=== PATIENT | female | born 1965 | race Caucasian/White ===

== ENCOUNTER 2019-03-08 10:54 | Inpatient (IN) | payer OTHER, SELFPAY ==
[2019-02-27 12:58] VITALS: BMI 24.2
[2019-03-08] VITALS (19 sets, daily range): BP systolic 96–163; BP diastolic 58–82; PULSE 67–88; RESP 10–37; TEMP 36.5–37.5; O2SAT 95–100; BMI 24.2
--- NOTE | 2019-03-08 | DI.RAD.S_ITS ---
PROCEDURE: XR LUMBAR SPINE 2-3V INDICATIONS: L4-5 TLIF TECHNIQUE: 2 operative views of the lumbar spine were acquired. COMPARISON: None. FINDINGS: AP and lateral operative images demonstrate posterior lateral right and pedicle screw fixation and interbody fusion material placement at L4-L5. There is no radiographic evidence of complications. IMPRESSION: Operative imaging utilized for lumbar surgery. Dictated by: Jaylon Red M.D. on 03/08/2019 at 15:58 Approved by: Jaylon Red M.D. on 03/08/2019 at 15:59
[2019-03-08] MEDS: LACTATED RINGERS 1,000 ML 42 ML IV ×2 (11:57→15:53)
--- NOTE | 2019-03-08 12:56 | PM.PREOP ---
Pre-operative Note Interval Note History & Physical reviewed/Exam performed by Physician: Yes Changes to H&P: No
[2019-03-08] MEDS: CEFAZOLIN 2 GM/100 ML FROZ.PIGGY IV (13:47)
--- NOTE | 2019-03-08 14:38 | SUR.OPER ---
Prone on spine table, head in foam head support, padded chest and pelvic supports, gel pad at knees, lower legs supported by pillows; nipples, genitalia and toes free of pressure, arms secured on foam padded arm boards at <90 degrees abduction. Tape over blanket at thigh secured to table.
[2019-03-08] MEDS: BUPIVACAINE LIPOSOME 266 MG/20 ML VIAL INJ (14:48)
[2019-03-08] MEDS: BUPIVACAINE 0.25% W/ EPI (PF) 10 ML VIAL 20 ML INJ (14:49)
[2019-03-08] MEDS: ACETAMINOPHEN IV 1,000 MG/100 ML VIAL 400 MG IV (15:12)
--- NOTE | 2019-03-08 16:19 | P.OP_ITS ---
Operative Date/Time/Diagnoses Date of procedure: 03/08/19 Time of procedure: 13:19 Pre-op diagnosis: 1. L4-5 spinal stenosis with neurogenic claudication 2. L4-5 spondylosis with radiculopathy 3. Lumbar scoliosis Post-op diagnosis: same Procedure & Clinicians Procedure: 1. L4-5 Postero-lateral and posterior interbody fusion 2. L4-5 interbody cage placement. 3. L4-5 decompressive laminectomy with bilateral facetecomies 4. L4-5 Posterior non-segmental instrumentation 5. [place] of bone marrow from iliac crest 6. Utilization of microsurgical technique and operating microscope Same procedure as scheduled: Yes Indications: Patient has been having chronic back pain and worsening lumbar radiculopathy. Patient failed multiple conservative management with worsening pain weakness and numbness in her lower extremity. Patient has been having difficulty performing activity of daily living. After discussing risks benefits of treatment options, patient elected proceed with surgery. Surgeon: Rolf Ladd Finisher Wallboard And Plasterboard: Rachael Good'Brien Click Yes if Unassisted: No Anesthesia Type: General Operative Notes Closure Type: primary Specimen(s): none sent Prosthetic devices, grafts, tissues, transplants, or devices: Globus revolve, RIse cage Estimated Blood Loss (mL): 50 Blood products transfused: none Procedure in detail: Patient was seen in the preoperative area. Risks and benefits of the surgery was discussed with the patient. Informed consent was obtained from the patient and placed in the chart. Surgical site was marked. Patient was taken to the operative room. General anesthesia was administered. Prophylactic antibiotic was given to the patient less than 30 min before the incision was made. Patient was placed into a prone position on the [place] table. Patient's back was then prepped and draped in the sterile fashion. Time- out was performed at this time. Using AP and lateral C-arm imaging the interval between L4-5 was identified and marked on patient's back. A 2 inch incision 2 in from midline was made on the right side first. The fascia was incised in line with skin incision. Globus MARS retractors was placed inside the incision and docked onto the L4 lamina. Using microsurgical technique and operating microscope, a L4 laminectomy and L4- 5 facetectomy was performed using a [place] rongeur. Patient was found have severe central and neuroforaminal stenosis at L4-5 which was fully decompressed after laminectomy facetectomy was completed. The L4-5 level was found to be grossly unstable after decompression was completed and requiring a fusion procedure at the same time. The disc space at L4-5 was identified. And a total diskectomy was performed at L4-5 level. The endplates were decorticated using a rasp and shaver. The total diskectomy and decortication was performed at L4-5 level in order to to accomplish a L4-5 fusion. The local bone from the laminectomy and facetectomy was saved for local bone grafting. After the total diskectomy and decortication was completed, Bio4 bone graft material was combined with local bone that was harvested earlier. At this time, a separate skin is incision was made over the iliac crest. A Jamshidi needle was inserted into the iliac crest through a separate skin incision. 5 cc of bone marrow aspiration was obtained through the separate skin incision using a Jamshidi needle from the iliac crest. The bone marrow aspiration was combined with local bone and the Bio4 bone grafting material. The bone grafting material was placed into the L4-5 interbody space along with a expandable cage. The cage was expanded to its maximum height using the torque limiting screwdriver. At this time a mirror image incision was made on the left side. The fascia was incised in line with the skin incision. Globus MARS retractor was inserted and docked onto the L4-5 posterolateral gutter. Using the power drill, posterior- lateral decortication was performed at L4-5 level until bleeding cortical bone was identified. The remaining bone grafting material was placed into the L4-5 posterior lateral gutter he order to accomplish posterolateral fusion at the L4- 5 level. Using the double C-arm technique, pedicle screws were placed into the L4-5 pedicles bilaterally. This was done by placing the Jamshidi needle into the pedicles, then placing the guidewires over the Jamshidi needle, and finally placing the cannulated screws over the guidewires bilaterally. After the pedicle screws were placed, 2 titanium rods was locked into the heads of the pedicle screws using locking caps and torque limiting screwdriver. After all the hardware was placed, and confirmed with AP and lateral C-arm imaging, the wound was then irrigated with sterile normal saline and packed with Ray-Giancarlo gauze for 3 min to accomplish hemostasis. After the gauze was removed the deep fascia was closed with #1 Vicryl suture. The subcutaneous layer was closed with 2-0 Vicryl. The skin was closed with skin stormy. Patient tolerated the procedure well. There were no complications. Complications: none Post-operative Condition: stable Disposition: PACU Plan for aftercare: Admit to inpatient hospital
--- NOTE | 2019-03-08 16:23 | SUR.PHASEI ---
hand-off to Carolyn Darnell RN
[2019-03-08] MEDS: hydrOXYzine 50 MG/ML INJ 25 MG IM (16:40)
[2019-03-08] MEDS: LORazepam 2 MG/ML INJ 0.25 MG IV (16:41)
[2019-03-08] MEDS: HYDROMORPHONE 2 MG INJ IV (17:00)
--- NOTE | 2019-03-08 17:17 | SUR.PHASEI ---
Gave pain medication for c/o 11/12 pain. Patient states she had numbness/tingling in feet prior to surgery and continues to have numbness/tingling after surgery.
--- NOTE | 2019-03-08 18:22 | PC.NURSE ---
Tiffanie shift note: Received patient S/P TLIF scheduled with Dr. Ladd, from PACU. Sleepy but arouses easily, on RA, O2 sats 98%. SCDs in place, [place] to lower back, CDI, VSS and afebrile. Daughter Cristel at bedside providing supportive care. Updated patient and daughter regarding plan of care. Oriented to room and environment, call light within reach. High Fall risk precautions in place.
[2019-03-08] MEDS: SODIUM CHLORIDE 0.9% 1,000 ML 100 ML IV (19:12)
[2019-03-08] MEDS: DEXTROSE 50 % IN WATER 25 GM/50 ML SYRINGE IV (20:30)
[2019-03-08] MEDS: CEFAZOLIN 1 GM/50 ML FROZ.PIGGY IV (21:54)
[2019-03-08] MEDS: DEXTROSE 5%-0.9% NS 1,000 ML 100 ML IV (21:54)
--- NOTE | 2019-03-08 22:32 | PC.NURSE ---
Tiffanie shift event note: BG check at 1026 59 mg/dl, patient awake and alert, asymptomatic. 1/2 amp dextrose admin per order. BG increased to 136 mg/dl. orange juice and sandwich taken PO at this time. BG to at 110 at reasses, then decrease to 82. Dr. Dale made aware regarding hypoglycemia event, IVF changed from 0.9 NS to D5 0.9 NS at same rate. Patient awake, pleasant, and cooperative. Daughter at bedside, mentioned patient had occasional hypoglycemic events at home. Will continue to monitor BG closely and s/sx of hypoglycemia. Up out of bed to [facility] [place] [facility], voided 500 ml.
[2019-03-08] MEDS: OXYCODONE/ACETAMINOPHEN 5/325 TABLET 2 TAB PO (23:59)
[2019-03-09 03:38] VITALS: BP 137/70; PULSE 93; RESP 14; TEMP 37.4; O2SAT 97
[2019-03-09] MEDS: CEFAZOLIN 1 GM/50 ML FROZ.PIGGY IV (05:56)
[2019-03-09] MEDS: OXYCODONE/ACETAMINOPHEN 5/325 TABLET 2 TAB PO ×4 (05:56→21:54)
[2019-03-09 08:00] VITALS: BP 98/57; PULSE 79; RESP 16; TEMP 37.1; O2SAT 95
[2019-03-09] MEDS: METFORMIN HCL 500 MG TABLET 1000 MG PO (08:36)
[2019-03-09] MEDS: INSULIN ASPART 100 UNIT/ML INSULN PEN SUBCUT ×3 (08:36→21:52)
[2019-03-09] MEDS: DOCUSATE 100 MG CAPSULE PO ×2 (08:36→21:53)
[2019-03-09] MEDS: INSULIN GLARGINE 100 UNIT/ML 10ML VIAL 30 UNIT SUBCUT (08:37)
--- NOTE | 2019-03-09 08:48 | PC.NURSE ---
Patient resting in bed comfortably this morning, states that pain medications from this morning have helped, assisted to sit up for breakfast. Dressing intact to back without further drainage noted. Patient tolerating po's, IV fluids saline locked this morning per MD order. Patient refused premeal aspart insulin as ordered for 6 units stating she does not take that and only uses a sliding scale with her meals. Call light within reach reach.
--- NOTE | 2019-03-09 09:30 | PT.IIE ---
this is to certify that I have reviewed this documentation and is involved with this pt's care Current Diagnoses Foot drop, right foot (03/08/19) Spinal stenosis, lumbar region without neurogenic claudication (03/08/19) Intervertebral disc disorders with radiculopathy, lumbar region (03/08/19) Surgery Performed Operation Date: 03/08/19 13:15 Actual Procedures p L4-5 TLIF - Rolf Ladd MD Surgical History (Last Updated 02/27/19 @ 13:17 by Chani Galan RN) History of arthroscopy of right shoulder (Acute) History of bilateral carpal tunnel release (Acute) History of partial hysterectomy (Acute) Hx of arthroscopy of left knee (Acute) Hx of tonsillectomy (Acute) Medical History (Last Updated 02/27/19 @ 13:17 by Chani Galan RN) Diabetes (Acute) History of trigger finger (Acute) HLD (hyperlipidemia) (Acute) HTN (hypertension) (Acute) RLS (restless legs syndrome) (Acute) Sciatica (Acute) Seasonal allergies (Acute) Physical Therapy Inpatient Evaluation/Re-Eval M1 PT/OT-IP Prior Functional Status Start: 03/09/19 11:36 Freq: NEEDED Status: Active Protocol: Document 03/09/19 09:30 MT (Rec: 03/09/19 12:11 MT [id number]) Medical Review Prior Functional Status Medical History Reviewed Yes Diet/Fluid Consistency Regular Communication Pt able to make needs known Mobility and Gait Pt reports being independent with gait and no prior use of AD Activities of Daily Living and IADL's Pt reports being independent marcos all ADL's, but she had difficulty putting pants on and required sitting down to accomplish tasks Prior Functional Level (Other details) Pt reports that and daughter helped her with certain activtiies around the house that involved lifting Social History Household Members spouse,family,children Living Arrangements House Number of Floors (Floors) One Floor Number of Stairs To Enter/Railing? There is 1 step to get into the bathroom of her house. is plannign on installing grab bar on R side to get in. There is a one step threshold to get into house with no handrail. Home Environment Standard Height Toilet,Walk in Shower Home Equipment Hand Held Shower,Grab Bars Near Toilet Employment Status Unknown Additional Social History Comment Pt lives at home with her and daughter. M2 PT-IP Current Condition Start: 03/09/19 11:36 Freq: NEEDED Status: Active Protocol: Document 03/09/19 09:30 MT (Rec: 03/09/19 12:11 MT [id number]) Physical Therapy Current Condition Current Condition Evaluation Date 03/09/19 Treatment Diagnosis decreased mobility, difficulty with walking s/p L4-5 TLIF Onset Date 03/08/19 Precautions Lumbar Precautions Log Roll,No Twisting,Limit Bending,Lifting Restriction of 10 lbs,Gait Belt above Incisional Area Weight Bearing Status Weight Bearing Status Full Weight Bearing M3 PT-IP Subjective Start: 03/09/19 11:36 Freq: NEEDED Status: Active Protocol: Document 03/09/19 09:30 MT (Rec: 03/09/19 12:11 MT [id number]) Subjective Physical Therapy Visit Type Type Initial Evaluation Visit Start Time 09:30 Visit Stop Time 10:02 Total Visit Minutes 32 Number of RUBY ON RAILS ENGINEER Visits 0 Physical Therapy Visit Comments Patient Comments Pt was agreeable to participate in Pt evaluation Therapy Pain Assessment Pain When Pain Assessed At Rest Pain Present Pain Present Pain Reported Location back Intensity 6 Scale Used Numeric (1 - 10) Description With Movement Pain Behaviors Facial Grimacing Pain Management Techniques Timing of Activity with Medications M4 PT-IP Mobility and Gait Start: 03/09/19 11:36 Freq: NEEDED Status: Active Protocol: Document 03/09/19 09:30 MT (Rec: 03/09/19 12:11 MT [id number]) PT-Bed Mobility Assessment Rolling Type of Rolling Log Rolling Level of Assist Contact Guard Assistance Supine to Sit Supine to Sit Contact Guard Assistance Sit to Supine Sit to Supine Contact Guard Assistance Scooting Scooting to Edge of Bed Standby Assistance PT-Transfer Assessment Sit to and From Stand Sit to and from Stand Contact Guard Assistance,1 Person Assistance,Use of Upper Extremities Equipment Transfer Assistive Device Gait Belt,Front Wheeled Walker Orthotic/Prosthetic Devices or Brace: No Transfers Transfer Destination Bed Transfer Technique sit to stand Transfer Ability Level of Assist Contact Guard Assistance Comments Mobility Comments Pt was found in bed prior to start of eval. Pt's BP was assessed prior to initiating movmeent and found to be 103/ 57. Pt was educated on log roll techinque and performed log roll and supine to sit with CGA. Pt was able to scoot to EOB with SBA. Once in sitting pt's BP was 111/63. Pt performed sit to stand with 2WW and CGA. Once in standing, pt's BP was 72/38 and she reported dizzyness. Pt was asked to sit back onto bed. BP was reassessed and found to be 68/36 and she reported onset of ringing in her ears. Pt performed sit to supine with log rolling technique CGA and was positioned in supine with feet slightly elevated. After 2 minutes in being positioned in trendelenburg, pt's BP was 134/58. Nursing was notified of the BP changes with positioning. Evaluation was concluded with pt in bed with her table and call light in [facility] and her bed alarm on. Gait Assessment Comments Gait Comments not assessed at this time Stair Climbing Assessment Comments Stair Climbing Comments not assessed at this time PT-Balance Assessment Sitting Balance and Reactions Static Sitting Balance Ability Good Dynamic Sitting Balance Ability Good Standing Balance and Reactions Static Standing Balance Ability Fair Dynamic Standing Balance Ability Fair Device Used 2WW M5 PT-IP Objective Assessments Start: 03/09/19 11:36 Freq: NEEDED Status: Active Protocol: Document 03/09/19 09:30 MT (Rec: 03/09/19 12:11 MT [id number]) Orientation Orientation/Cognition Level of Alertness Alert Orientation Name,Date,Place,Situation Language Function Ability No Deficits Noted Safety Awareness Understands Safety Issues Memory Description No Deficits Noted Gross Range of Motion Lower Extremity ROM Assessment Within Functional Limits Impairments pain present Strength Lower Extremity Strength Assessment Bilaterally Impaired Comments Strength Comments R: 3+/5; L: 4/5 Sensation Assessment Sensation Gross Sensation WNL M6 PT-IP Treatment Start: 03/09/19 11:36 Freq: NEEDED Status: Active Protocol: Document 03/09/19 09:30 MT (Rec: 03/09/19 12:11 MT [id number]) Physical Therapy Treatment Education Education Provided Precautions,Post-Op Packet, Safety M7 PT-IP Assessment and Plan Start: 03/09/19 11:36 Freq: NEEDED Status: Active Protocol: Document 03/09/19 09:30 MT (Rec: 03/09/19 12:11 MT [id number]) PT Summary Assessment and Plan Potential Rehabilitation Potential Good Status of Condition at Evaluation Unstable Summary Impairments Pain,ROM,Strength,Balance,Bed Mobility,Transfers,Gait, Activity Tolerance Assessment Summary Pt performed bed mobility and sit to stand transfer with CGA . Once in standing, pt reported symptoms of dizzyness and had an orthostatic drop in BP. Did not continue any further standing or ambulation . When appropriate for pt and when her vitals are stabilized in standing, gait and stair ability will be assessed. Pending pt's ability to ambulate safely, navigate steps, and succesful caregiver training with family , pt will be safe to d/c home with assistance from daughter and . Goals Bed Mobility Goal Independent Transfer Goal Independent,Front Wheeled Walker Gait Goal Standby Assistance,Front Wheel Walker Gait Distance 150 ft Other Goals able to asced/descend one step without use of handrail with 2WW and SBA Days to Meet Goals 5 Frequency of Treatment Frequency Of Treatment Twice a Day Treatment Plan Physical Therapy Treatment Plan Bed Mobility Training,Transfer Training,Gait Training, Therapeutic Exercise,Balance Retraining,Post Op Education, Discharge Planning,Hot or Cold Pack,Manual Therapy Other Recommendations and Next Treatment caregiver training, gait Focus training, and stair training when appropriate for pt, follow up with pt about their options for 2WW Recommendations To Nursing Amount of Assist Needed 1 Person Assist Discharge Recommendations PT Discharge Recommendations Home with Assistance,Home Health Equipment Needed for Home Before 2WW Discharge
--- NOTE | 2019-03-09 10:45 | PC.NURSE ---
Was notified by P.T. that patient had hypotensive episode when working with them. Blood pressure noted as low as 68/36 with heart rate at 66. Upon my arrival patient laying flat in bed, comfortable, but slightly pale in the face. Blood pressure noted back to 134/58 with heart rate of 73. Patient states she felt a little dizzy, and coming near to fainting, now resolved at rest. Patient going to rest, call light within reach, instructed to call for assistance, bed alarm active for safety. Message left for Hanny Medina PA, will continue to follow.
--- NOTE | 2019-03-09 11:58 | OT.IP.EVAL ---
Current Diagnoses Foot drop, right foot (03/08/19) Spinal stenosis, lumbar region without neurogenic claudication (03/08/19) Intervertebral disc disorders with radiculopathy, lumbar region (03/08/19) Surgery Performed Operation Date: 03/08/19 13:15 Actual Procedures p L4-5 TLIF - Rolf Ladd MD Past Medical History (Last Updated 02/27/19 @ 13:17 by Chani Galan, RN) Diabetes (Acute) History of trigger finger (Acute) HLD (hyperlipidemia) (Acute) HTN (hypertension) (Acute) RLS (restless legs syndrome) (Acute) Sciatica (Acute) Seasonal allergies (Acute) Surgical History (Last Updated 02/27/19 @ 13:17 by Chani Galan RN) History of arthroscopy of right shoulder (Acute) History of bilateral carpal tunnel release (Acute) History of partial hysterectomy (Acute) Hx of arthroscopy of left knee (Acute) Hx of tonsillectomy (Acute) Occupational Therapy Inpatient Evaluation/Re-Eval M1 PT/OT-IP Prior Functional Status Start: 03/09/19 11:36 Freq: NEEDED Status: Active Protocol: Document 03/09/19 11:58 PJM (Rec: 03/09/19 13:48 PJM [id number]) Medical Review Prior Functional Status Medical History Reviewed Yes Diet/Fluid Consistency Regular Communication WNL Mobility and Gait Pt reports being independent with ambulation without a device. Activities of Daily Living and IADL's Pt reports being independent marcos all ADL's, but she had difficulty putting pants on and sits down to do this. Her daughter has been assisting with trimming toenails due to pt's difficulty reaching feet. Pt does cooking, shopping, driving. Prior Functional Level (Other details) Pt reports that and daughter helped her with activities around the house that involved lifting. Social History Household Members spouse,family,children Living Arrangements House Number of Floors (Floors) One Floor Number of Stairs To Enter/Railing? There is 1 step to get into the bathroom of her house. is planning to install grab bar on R side to get in. There is a one step threshold to get into house with no handrail. Home Environment Standard Height Toilet,Walk in Shower Home Equipment Hand Held Shower,Grab Bars Near Toilet Employment Status Senior Regulatory Affairs Specialist Employed Additional Social History Comment Pt lives at home with her and daughter. 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 M2 OT-IP Current Condition Start: 03/09/19 08:38 Freq: Status: Active Protocol: Document 03/09/19 11:58 PJM (Rec: 03/09/19 13:48 PJ [id number]) Occupational Therapy Current Condition Current Condition Evaluation Date 03/09/19 Treatment Diagnosis decreased self care, mobility s/p L4-5 TLIF Diagnosis Onset Date 03/08/19 Post Operative Precautions Lumbar Precautions Log Roll,No Twisting,Limit Bending,Lifting Restriction of 10 lbs,Gait Belt above Incisional Area Other Precautions hypotensive with P.T. in standing 03/09 M3 OT- IP Subjective and Pain Start: 03/09/19 08:38 Freq: Status: Active Protocol: Document 03/09/19 11:58 PJM (Rec: 03/09/19 13:48 PJ [email or web address]) OT- Subjective Occupational Therapy Visit Type Type Initial Evaluation Visit Start Time 11:40 Visit Stop Time 11:58 Notes Pt seen at bedside due to episode of severe hypotension in standing with P.T. this AM. Pt's BP 120/63 in supine, 131/ 68 long sitting in bed for lunch. 124/80 after 5+ min sitting up. Occupational Therapy Visit Comments Patient/Caregiver Goals to have less back pain, be able to resume household activity without pain, return to work OT Pain Assessment Pain When Pain Assessed At Rest Location back Intensity 5 Description Aching,Acute M4 OT- IP ADL's Start: 03/09/19 08:38 Freq: Status: Active Protocol: Document 03/09/19 11:58 PJM (Rec: 03/09/19 13:48 [facility] [id number]) OT [id number] General Evaluation Self-Feeding Ability Independent OT ADL-Grooming General Evaluation Grooming Ability Independent Comments OT Grooming Comments after set up in bed OT ADL-Oral Care General Eval Oral Care Ability Independent Comments Oral Care Comments after set up in bed OT ADL-Dressing Comments OT Dressing Comments provided brief education re: lower body dressing and equipt options OT ADL-Toileting Comments OT Toileting Comments to be assessed as activity tolerance improves OT ADL-Bathing Comments OT Bathing Comments to be assessed as activity tolerance improves M5 OT- IP IADL's Start: 03/09/19 08:38 Freq: Status: Active Protocol: Document 03/09/19 11:58 PJM (Rec: 03/09/19 13:48 PJ [email or web address]) OT-Instrumental Activities of Daily Living Deficits IADL Deficits Identified Deficits Home Safety Awareness Awareness of Need for Assistance at Home Good Awareness Ability to Problem Solve Emergency Able to Problem Solve Situations Medication Management Medication Management No Deficits Identified Money Management Money Management No Deficits Identified Meal Preparation Meal Preparation Caregiver Provides Assist Meal Preparation Comments family to assist until pt able Catalogue Maker Catalogue Maker Caregiver Provides Assist Catalogue Maker Comments family to assist until pt able Driving Driving Concerns Identified Regarding Safety Driving Comments family to assist until pt able M6 OT- IP Functional Cognition Start: 03/09/19 08:38 Freq: Status: Active Protocol: Document 03/09/19 11:58 PJM (Rec: 03/09/19 13:48 PJ [email or web address]) Cognitive Factors Limiting Selfcare Function Cognitive Ability Level of Alertness Alert Patient Orientation Name,Age,Birthday,Month,Date, Year,Day of Week,Place, Situation Attention Span Ability Capable of Focused Attention, Capable of Sustained Attention Ability to Follow Commands Able to Follow One Step Commands Memory Description No Deficits Noted Cognitive Comments Cognitive Assessment Comments pt verbalizes 3/3 lumbar spine precautions OT- Vision and Hearing OT- Hearing Assessment OT- Hearing Assessment WFL OT- Vision Assessment Visual Acuity WFL,Glasses All The Time M7 OT- IP Mobility and Balance Start: 03/09/19 08:38 Freq: Status: Active Protocol: Document 03/09/19 11:58 PJM (Rec: 03/09/19 13:48 PJ [email or web address]) OT-Transfer Assessment Comments Mobility Comments see P.T. notes OT- Gait Assessment Comments Gait Ability Comments did not occur due to hypotension OT- Balance Assessment Comments Other Balance Tests/Deviations/Treatment see P.T. notes : M8 OT- IP Objective Assessments Start: 03/09/19 08:38 Freq: Status: Active Protocol: Document 03/09/19 11:58 PJM (Rec: 03/09/19 13:48 PJ [email or web address]) OT Gross Range of Motion Upper Extremity Range of Motion Assessment Within Functional Limits OT Strength Upper Extremity Strength Assessment Within Functional Limits OT- Coordination Assessment Comments Coordination Comments BUE WFL OT-Muscle Tone Assessment Muscle Tone WNL Yes OT Sensation Assessment Comments Summary Comments Pt denies deficits in BUE's Edema Edema Absent M9 OT- IP Assessment and Plan Start: 03/09/19 08:38 Freq: Status: Active Protocol: Document 03/09/19 11:58 PJM (Rec: 03/09/19 13:48 PJM [email or web address]) OT Summary Assessment and Plan Potential Rehabilitation Potential Good Analytic Complexity at Evaluation Low Summary OT Impairments Pain,Functional Mobility, Grooming,Dressing,Toileting, Bathing,Toilet Transfers, Shower Transfers Progress Towards Goals Slow Progress due to Medical Issues Assessment Summary Low complexity OT assessment completed at bedside today on this 53 yr old female s/p L4-5 TLIF. Pt had episode of hypotension in standing earlier this AM which limited participation today. Pt presents with performance deficits in activity tolerance , all functional mobility, transfers, standing, grooming, lower body dressing, bathing and toileting. Anticipate pt will continue to improve over next 1-2 days and be able to return home with assist from and daughters. Pt will benefit from 1-2 additional OT visits here to address the goals below. Goals Grooming Goal Independent Dressing Goal Independent,Long Handled Shoe Horn,Goat Driver,Sock Aid Toileting Goal Independent Bathing Goal Standby Assistance Toilet Transfer Goal Independent,Grab Bars Shower Transfer Goal Standby Assistance Patient/Caregiver Education Goal Demonstrate Post-Op Precautions,Demonstrate Energy Conservation and Pacing, Caregiver Independent Assisting Patient OT-Other Goals Grooming to be doen standing at sink with good body mechanics. Days to Meet Goals 2 Frequency of Treatment Frequency Of Treatment Once a Day Treatment Plan OT Treatment Plan ADL Training,Functional Mobility,Patient/Family Education,Discharge Planning Discharge Recommendations OT Discharge Recommendations Home with Assistance Home Equipment Needs home health speech therapist, sock aid, long shoe horn, ? shower seat
[2019-03-09 12:00] VITALS: BP 120/73; PULSE 81; RESP 16; TEMP 36.9; O2SAT 97
[2019-03-09] MEDS: INFLUENZA VACCINE 0.5 ML SYRINGE IM (13:32)
--- NOTE | 2019-03-09 14:49 | CM.DANOTE ---
DCP Assessment: EMR reviewed: Patient is a 53 yr old female who was admitted for L4-L5 TLIF surgery preformed by Dr. GARCIA. Patients PCP is Dr Dowell. CM/RN met with patient at the bedside and explained role. Patient was alert and oriented at time of visit. Patient currently lives in a single level house with her and her children. Patient is I with all ADL's at base line and has Pos op appointment scheduled for 03/21/2019 with . PT eval pending. I: Bill (work related injury) Plan: D/C home with family when medically stable. Patient doesn't have any DME at home and might need help with a FWW if one is needed. Krystina Thorne RN Discharge Planning/Care Management CM Discharge Assessment Start: 03/09/19 14:47 Freq: Status: Active Protocol: Document 03/09/19 14:47 HS (Rec: 03/09/19 14:49 HS [id number]) Discharge Planning Assessment Assigned Mechanic Sound Technician Krystina Thorne RN DPOA/Assigned Designee Name Robert Platt () Contact Information [phone] Advance Directives? No History Provided By Patient Has Patient been admitted in last 30 No days? Prior Living Arrangements House Household Members spouse,family,children Type of transporation used prior to Drives own vehicle admit Independent with ADL's Yes Is patient alert and oriented? Yes Caregiver for Another Yes: patient has several teenage children Comment patient doesn't currenly have any DME at home Patient/Family Preference OP PT Therapy Discharge Plan Home Transportation Arrangement patients will transport patient home Referrals Initiated None needed Whiteboard Updated in Patient Room with Yes name and ext. # of Mechanic Sound Technician Review Status In Process Next Review Type Continued Stay Review Pre-Anesthesia Assessment Start: 02/27/19 12:58 Freq: Status: Complete Protocol: Document 02/27/19 12:58 CAB (Rec: 02/27/19 13:41 CAB [id number]) Pre-Anesthesia Assessment PAC Comment Pt states she cannot afford medications for HTN and HLD Patient Information Reviewed Via Phone Assessment Assessment Completed With Patient Diagnostic Results BMP/CMP,CBC,EKG Primary Care Provider Guy Dowell Seen Specialist in Last 12 Months Yes Specialist Seen Orthopedist Comment PCP visit 02/09/19 scanned to record Primary Language Sinhala Principal Systems Engineer Required No Height 162.56 cm Weight 63.957 kg Body Mass Index (BMI) 24.2 Hearing Ability Normal Visual Assist Glasses Dentition Type Teeth, Natural Present,Teeth, Missing Barriers to Learning None Hx Anesthesia Reactions No Hx Family Anesthesia Reaction No Hx Malignant Hyperthermia No Hx Blood Transfusions No Anesthesia Review Requested No alcohol intake former Smoking Status Former smoker Tobacco type cigarettes how long ago did patient quit smoking Quit 2010 Substance Use Type does not use Pain Present Pain Reported Musculoskeletal Symptoms Back Pain,Difficulty Walking, Joint Stiffness History of Falling (Recent or History of No ) Patient is completely paralyzed or No completely immobile Mental Status Oriented to own ability Is patient on oxygen? No Does patient have SMITH/SOB No Hx Sleep Apnea No Currently Taking a Beta Darek No Can You Climb a Flight of Stairs Without Yes SOB Hx Chest Pain No Hx SOB No Hx Syncope or Dizziness No Anti-Coagulant Therapy No Has a Grinder Machine Setter No Cardiac Testing No Hx Pacemaker/ICD No Pacemaker Rep Required? No Cardiac Clearance Received Not Applicable Diet Type At Home Regular dysphagia No Urinary Catheter Present No Hx Urinary Self Catheterization No Diabetes Yes: Checks blood sugars 4-6 times/day HgbA1C 8.9 Date 01/20/19 Patient No Lactating No Hx Drug Resistant Organism No Presence of External or Internal Medical No Devices Have you traveled outside the [facility] States in the last 30 days? Marital Status Lives With spouse,family,children Prior Living Arrangements House Number of Floors (Floors) One Floor Support System Child/Children,Spouse Does the Patient Have Assistance After Yes Surgery Patient Discharge Plan Description Return Home Comment Pt not advised on length of stay per surgeon Feels Safe in Current Environment Yes Been Physically Hurt or Threatened By a No Person in Current Environment If Yes, Provider Notified Yes Are you currently considering suicide? No Do you have a plan to hurt yourself or No Plan others? Do You Have Any Spiritual Beliefs That No May Affect Your HC Choices? Do You Have Any Cultural Practices That No May Affect Your HC Choices? Comment Roman Catholic Who Can We Speak to About Patient's Care Family, friends Identifying Code for Release of Patient Declines to issue Information Health Care Proxy/Next of Kin Cristel (daughter) Health Care Proxy Emergency Contact Name Cristel (daughter) Emergency Contact Advance Directives? No Power of Automotive Salesperson No PAC Instructions Medications to take/avoid, Nasal antibiotic,No ETOH/ petroleum product on skin DOS, NPO,Post-op transportation,Pre -surgical wash,Sturdy shoes/ comfortable clothes,Do not bring valuables and remove jewelry
--- NOTE | 2019-03-09 15:11 | PT.IPTN ---
This is to certify that I have reviewed this documentation and is involved with this pt's care. Current Diagnoses Foot drop, right foot (03/08/19) Spinal stenosis, lumbar region without neurogenic claudication (03/08/19) Intervertebral disc disorders with radiculopathy, lumbar region (03/08/19) Surgery Performed Operation Date: 03/08/19 13:15 Actual Procedures p L4-5 TLIF - Rolf Ladd MD Physical Therapy Treatment Note M2 PT-IP Current Condition Start: 03/09/19 11:36 Freq: NEEDED Status: Active Protocol: Document 03/09/19 09:30 MT (Rec: 03/09/19 12:11 MT [id number]) Physical Therapy Current Condition Current Condition Evaluation Date 03/09/19 Treatment Diagnosis decreased mobility, difficulty with walking s/p L4-5 TLIF Onset Date 03/08/19 Precautions Lumbar Precautions Log Roll,No Twisting,Limit Bending,Lifting Restriction of 10 lbs,Gait Belt above Incisional Area Weight Bearing Status Weight Bearing Status Full Weight Bearing M3 PT-IP Subjective Start: 03/09/19 11:36 Freq: NEEDED Status: Active Protocol: Document 03/09/19 15:11 MT (Rec: 03/09/19 17:29 MT [email or web address]) Subjective Physical Therapy Visit Type Type Treatment Note Visit Start Time 15:11 Visit Stop Time 15:35 Total Visit Minutes 24 Number of CHIEF QUALITY OFFICER Visits 0 Physical Therapy Visit Comments Patient Comments Pt was agreeable to participate in PT session Therapy Pain Assessment Pain When Pain Assessed At Rest Pain Present Pain Present Pain Reported Location back Intensity 6 Scale Used Numeric (1 - 10) Pain Behaviors Facial Grimacing M4 PT-IP Mobility and Gait Start: 03/09/19 11:36 Freq: NEEDED Status: Active Protocol: Document 03/09/19 15:11 MT (Rec: 03/09/19 17:29 MT [email or web address]) PT-Bed Mobility Assessment Rolling Type of Rolling Log Rolling,Roll to Right Level of Assist Standby Assistance Supine to Sit Supine to Sit Minimal Assistance Sit to Supine Sit to Supine Contact Guard Assistance Scooting Scooting to Edge of Bed Standby Assistance PT-Transfer Assessment Sit to and From Stand Sit to and from Stand Contact Guard Assistance,Use of Upper Extremities Equipment Transfer Assistive Device Gait Belt,Front Wheeled Walker Orthotic/Prosthetic Devices or Brace: No Comments Mobility Comments Pt was found in bed prior to start of treatment. Her BP was 119/62 prior to initiating movement. Pt performed supine to sit with log roll technique Jaycob, mostly requiring assistance with scooting laterally while in supine for positioning prior to log roll. In sitting, pt's BP in sitting was 122/72 and 117/66 after 2 minutes of sitting. Pt performed sit to stand using 2WW and CGA. In standing pt's BP was initially 104/59, but after another minute dropped to 83/49 and pt began reportign worsening dizziness. Pt took side steps to position themselves themselves high in bed and then was asked to sit. BP was reassessed after 2 minutes and found to be 89/44. Pt performed sit to supine with log roll technique CGA and positioned in supine. Pt's BP increased to 97/60 after being in supine for 2 minutes. nursing was notified about the change in BP with positioning. Gait Assessment Gait Gait Assistance Required: Contact Guard Assist,1 Person Assist Distance (Feet) 2 Able to Maintain Weight Bearing Status Yes During Gait Assistive Devices Assistive Device Gait Belt,Front Wheeled Walker Orthotic/Prosthetic Devices or Brace: No Gait Deviations General Gait Pattern Antalgic,Decreased Stride Length,Decreased Feet Clearance,Flexed Trunk Factors Limiting Gait Function Factors Limiting Gait Function Decreased Activity Tolerance, Decreased Strength,Pain,Poor Balance Comments Gait Comments pt took side steps to position themselves higher in bed using 2WW and CGA. Stair Climbing Assessment Comments Stair Climbing Comments not assessed at this time M5 PT-IP Objective Assessments Start: 03/09/19 11:36 Freq: NEEDED Status: Active Protocol: Document 03/09/19 09:30 MT (Rec: 03/09/19 12:11 MT [id number]) Orientation Orientation/Cognition Level of Alertness Alert Orientation Name,Date,Place,Situation Language Function Ability No Deficits Noted Safety Awareness Understands Safety Issues Memory Description No Deficits Noted Gross Range of Motion Lower Extremity ROM Assessment Within Functional Limits Impairments pain present Strength Lower Extremity Strength Assessment Bilaterally Impaired Comments Strength Comments R: 3+/5; L: 4/5 Sensation Assessment Sensation Gross Sensation WNL M6 PT-IP Treatment Start: 03/09/19 11:36 Freq: NEEDED Status: Active Protocol: Document 03/09/19 09:30 MT (Rec: 03/09/19 12:11 MT [id number]) Physical Therapy Treatment Education Education Provided Precautions,Post-Op Packet, Safety M7 PT-IP Assessment and Plan Start: 03/09/19 11:36 Freq: NEEDED Status: Active Protocol: Document 03/09/19 15:11 MT (Rec: 03/09/19 17:29 MT [email or web address]) PT Summary Assessment and Plan Potential Rehabilitation Potential Good Status of Condition at Evaluation Unstable Summary Impairments Pain,ROM,Strength,Balance,Bed Mobility,Transfers,Gait, Activity Tolerance Progress Towards Goals Slow Progress due to Medical Issues,Slow Progress due to Activity Tolerance Assessment Summary Pt continues to have orthostatic drop in BP with standing positions affecting her ability to participate in ambulation and transfers. Pending pt's ability to ambulate safely, navigate steps, and succesful caregiver training with family, pt will be safe to d/c home with assistance from daughter and . Followed up with pt about getting 2WW. Pt reported that home health care case manager confirmed that the 2WW would be covered by pt 's insurance. And pt opted to purchase 2WW from in-hospital company. Goals Bed Mobility Goal Independent Transfer Goal Independent,Front Wheeled Walker Gait Goal Standby Assistance,Front Wheel Walker Gait Distance 150 ft Other Goals able to asced/descend one step without use of handrail with 2WW and SBA Days to Meet Goals 5 Frequency of Treatment Frequency Of Treatment Twice a Day Treatment Plan Physical Therapy Treatment Plan Bed Mobility Training,Transfer Training,Gait Training, Therapeutic Exercise,Balance Retraining,Post Op Education, Discharge Planning,Hot or Cold Pack,Manual Therapy Other Recommendations and Next Treatment caregiver training, gait Focus training, and stair training when appropriate for pt Recommendations To Nursing Amount of Assist Needed 1 Person Assist Discharge Recommendations PT Discharge Recommendations Home with Assistance,Home Health,Outpatient PT Equipment Needed for Home Before 2WW Discharge
--- NOTE | 2019-03-09 16:21 | PM.PNPO.1 ---
Subjective Subjective Date Patient Seen: 03/09/19 Time Patient Seen: 16:21 Interval history: POD #1 s/p L4-[address] Ladd. Patient complains of mild to moderate pain in lower back. Pain well controlled with percocet. Patient was dizzy and hypotensive during physical therapy in AM. Patient denies dizziness while laying down in bed. Adequate PO intake. EBL 50 mL. Patient denies fever, chills, nausea, vomiting, chest pain, shortness of breath Exam Vital Signs (past 8 hours): - 03/09/19 12:00 Temperature 98.5 F Pulse Rate 81 Respiratory Rate 16 Blood Pressure 120/73 Pulse Oximetry 97 Oxygen Delivery Method Room Air Oxygen Flow Rate 0 Narrative Exam Narrative: 53 year old female laying comfortably in bed, in no apparent distress. A&Ox3. Dressing CDI on lower back. Sensory function grossly intact to light touch in LE b/l. Capillary refill <2sec LE b/l. Dorsalis pedis 2+ b/l. Able to actively dorsiflex/plantar flex b/l. Assessment & Plan Post-op Postoperative Procedures: Procedures Operation Date: 03/08/19 13:15 Actual Procedures Side Surgeon p L4-5 TLIF Rolf Ladd MD Postoperative plan narrative: hypotension - most likely orthostatic, bolus 500 mL NS before next PT and monitor ; bolus additional 500 mL NS if hypotensive again continue current pain management discharge home likely in next 24 hours Time Spent With Patient Time with patient: less than 15 minutes Quality VTE Deep Vein Thrombosis/Pulmonary Embolism Present on Admission: No
[2019-03-09] MEDS: SODIUM CHLORIDE 0.9% 500 ML 1000 ML IV (16:26)
[2019-03-09 16:30] VITALS: BP 114/64; PULSE 85; RESP 20; TEMP 38; O2SAT 97
[2019-03-09 20:00] VITALS: BP 113/61; PULSE 84; RESP 18; TEMP 37.2
[2019-03-09] MEDS: SENNOSIDES 8.6 MG TABLET 17.2 MG PO (21:53)
[2019-03-09] MEDS: INSULIN GLARGINE 100 UNIT/ML 10ML VIAL 80 UNIT SUBCUT (21:53)
[2019-03-10 00:30] VITALS: BP 121/68; PULSE 87; RESP 16; TEMP 36.5; O2SAT 94
[2019-03-10] MEDS: OXYCODONE/ACETAMINOPHEN 5/325 TABLET 2 TAB PO ×3 (02:07→11:15)
[2019-03-10 05:50] VITALS: BP 107/58; PULSE 77; RESP 16; TEMP 36.6; O2SAT 96
--- NOTE | 2019-03-10 06:15 | PC.NURSE ---
Checked pt. if she needed pain relief, but she's sound asleep. Will cont. POC & monitor.
[2019-03-10] MEDS: DOCUSATE 100 MG CAPSULE PO (08:33)
[2019-03-10] MEDS: METFORMIN HCL 500 MG TABLET 1000 MG PO (08:33)
[2019-03-10] MEDS: INSULIN GLARGINE 100 UNIT/ML 10ML VIAL 30 UNIT SUBCUT (08:38)
[2019-03-10 09:00] VITALS: BP 101/61; PULSE 81; RESP 16; TEMP 37.3; O2SAT 95
--- NOTE | 2019-03-10 09:05 | OT.IP.TRT ---
Current Diagnoses Foot drop, right foot (03/08/19) Spinal stenosis, lumbar region without neurogenic claudication (03/08/19) Intervertebral disc disorders with radiculopathy, lumbar region (03/08/19) Surgery Performed Operation Date: 03/08/19 13:15 Actual Procedures p L4-5 TLIF - Rolf Ladd MD Occupational Therapy Treatment Note M2 OT-IP Current Condition Start: 03/09/19 08:38 Freq: Status: Active Protocol: Document 03/09/19 11:58 PJM (Rec: 03/09/19 13:48 PJM [id number]) Occupational Therapy Current Condition Current Condition Evaluation Date 03/09/19 Treatment Diagnosis decreased self care, mobility s/p L4-5 TLIF Diagnosis Onset Date 03/08/19 Post Operative Precautions Lumbar Precautions Log Roll,No Twisting,Limit Bending,Lifting Restriction of 10 lbs,Gait Belt above Incisional Area Other Precautions hypotensive with P.T. in standing 12/5 M3 OT- IP Subjective and Pain Start: 03/09/19 08:38 Freq: Status: Active Protocol: Document 03/10/19 09:43 [facility] (Rec: 03/10/19 09:59 [facility] [id number]) OT- Subjective Occupational Therapy Visit Type Type Treatment Note Visit Start Time 09:05 Visit Stop Time 09:43 Total Visit Minutes 38 Occupational Therapy Visit Comments Patient Comments Pt after encouragement agreed to shower. Patient/Caregiver Goals To go home. OT Pain Assessment Pain When Pain Assessed At Rest Pain Present Pain Present Pain Reported Location back Intensity 6 M4 OT- IP ADL's Start: 03/09/19 08:38 Freq: Status: Active Protocol: Document 03/10/19 09:43 [facility] (Rec: 03/10/19 09:59 [facility] [id number]) OT ADL-Dressing General Eval Upper Body Dressing Ability Independent Lower Body Dressing Ability Minimal Assistance,Moderate Assistance Areas Needing Assistance Underpants/Brief,Pants/Shorts, Socks Comments OT Dressing Comments Pt states not needing to use lower body dressing equipment when offered. Pt having trouble to musa right side and needing GWEN , educated to musa right leg in fist and take it out last. Pt states family to assist at home. OT ADL-Toileting General Evaluation Toileting Ability Standby Assistance Comments OT Toileting Comments VC at this time to wipe after bowel movement, best to stand. OT ADL-Bathing Bathing Type Bathing Type Shower General Evaluation Bathing Ability Minimal Assistance Areas Needing Assistance Wash/Dry Back,Wash/Dry Lower Extremities Devices Bathing Equipment Hand Held Shower Sprayer, Shower Chair with Arms,Grab Bars Comments OT Bathing Comments Assist to dry her feet, and wash/dry her back. SBA/CGA while standing for pericare needs. Pt would benefit from shower chair at home for showers. In addition suction cub grab bars if unable to install grab bar in the shower . M5 OT- IP IADL's Start: 03/09/19 08:38 Freq: Status: Active Protocol: Document 03/09/19 11:58 PJM (Rec: 03/09/19 13:48 PJM [id number]) OT-Instrumental Activities of Daily Living Deficits IADL Deficits Identified Deficits Home Safety Awareness Awareness of Need for Assistance at Home Good Awareness Ability to Problem Solve Emergency Able to Problem Solve Situations Medication Management Medication Management No Deficits Identified Money Management Money Management No Deficits Identified Meal Preparation Meal Preparation Caregiver Provides Assist Meal Preparation Comments family to assist until pt able Quality Systems Technician Quality Systems Technician Caregiver Provides Assist Quality Systems Technician Comments family to assist until pt able Driving Driving Concerns Identified Regarding Safety Driving Comments family to assist until pt able M6 OT- IP Functional Cognition Start: 03/09/19 08:38 Freq: Status: Active Protocol: Document 03/10/19 09:43 [facility] (Rec: 03/10/19 09:59 [facility] [id number]) Cognitive Factors Limiting Selfcare Function Cognitive Ability Level of Alertness Alert Patient Orientation Name,Age,Birthday,Month,Date, Year,Day of Week,Place, Situation Attention Span Ability Capable of Focused Attention, Capable of Sustained Attention Ability to Follow Commands Able to Follow Multi-Step Commands Memory Description No Deficits Noted Safety Awareness Underestimates Need for Assistance Cognitive Comments Cognitive Assessment Comments Pt needing vc for fww safety and safety to get up from sit to stand. Pt tends to want to push up from FWW to stand versus from surfaces sitting on. M7 OT- IP Mobility and Balance Start: 03/09/19 08:38 Freq: Status: Active Protocol: Document 03/10/19 09:43 [facility] (Rec: 03/10/19 09:59 [facility] [id number]) OT- Bed Mobility Assessment Rolling Type of Rolling Roll to Left Level of Assistance Standby Assistance Supine to Sit Supine to Sit Assist Standby Assistance OT-Transfer Assessment Sit to and From Stand Sit to and from Stand Contact Guard Assistance, Minimal Assistance Transfers Transfer Ability Standby Assistance,Contact Guard Assistance Technique Transfer Destination Bed,Chair,Shower Stall,Toilet Transfer Technique Stand Step Pivot Devices Transfer Assistive Devices Gait Belt,Front Wheeled Walker Comments Mobility Comments From lower surfaces needing GWEN to stand. VC to scoot forwards first and lean at her hips. Pt has a tendency to hesitant when coming up to stand due to pain and educated to stand without stopping. CGA with FWW when stepping over the threshold. OT- Balance Assessment Sitting Balance and Reactions Static Sitting Balance Ability Normal Dynamic Sitting Balance Ability Normal Standing Balance and Reactions Static Standing Balance Ability Good Dynamic Standing Balance Ability Fair M8 OT- IP Objective Assessments Start: 03/09/19 08:38 Freq: Status: Active Protocol: Document 03/09/19 11:58 PJM (Rec: 03/09/19 13:48 PJM [id number]) OT Gross Range of Motion Upper Extremity Range of Motion Assessment Within Functional Limits OT Strength Upper Extremity Strength Assessment Within Functional Limits OT- Coordination Assessment Comments Coordination Comments BUE WFL OT-Muscle Tone Assessment Muscle Tone WNL Yes OT Sensation Assessment Comments Summary Comments Pt denies deficits in BUE's Edema Edema Absent M9 OT- IP Assessment and Plan Start: 03/09/19 08:38 Freq: Status: Active Protocol: Document 03/10/19 09:43 [facility] (Rec: 03/10/19 09:59 [facility] [id number]) OT Summary Assessment and Plan Potential Rehabilitation Potential Good Analytic Complexity at Evaluation Low Summary OT Impairments Functional Mobility,Dressing, Bathing Progress Towards Goals Progressing Toward Goals Assessment Summary Pt making good progress today and pt's daughter present for caregiver training and able to musa the gait belt, assist with functional mobility needs and ADl's. Pt looking to go home today and have family to assist with needs. Goals Dressing Goal Independent Patient/Caregiver Education Goal Demonstrate Post-Op Precautions,Demonstrate Energy Conservation and Pacing, Caregiver Independent Assisting Patient Days to Meet Goals 1 Frequency of Treatment Frequency Of Treatment Once a Day Treatment Plan OT Treatment Plan ADL Training,Functional Mobility,Patient/Family Education,Discharge Planning Discharge Recommendations OT Discharge Recommendations Home with Assistance Home Equipment Needs Shower chair
--- NOTE | 2019-03-10 09:40 | PT.IPTN ---
Current Diagnoses Foot drop, right foot (03/08/19) Spinal stenosis, lumbar region without neurogenic claudication (03/08/19) Intervertebral disc disorders with radiculopathy, lumbar region (03/08/19) Surgery Performed Operation Date: 03/08/19 13:15 Actual Procedures p L4-5 TLIF - Rolf Ladd MD Physical Therapy Treatment Note M2 PT-IP Current Condition Start: 03/09/19 11:36 Freq: NEEDED Status: Discharge Protocol: Document 03/09/19 09:30 MT (Rec: 03/09/19 12:11 MT [id number]) Physical Therapy Current Condition Current Condition Evaluation Date 03/09/19 Treatment Diagnosis decreased mobility, difficulty with walking s/p L4-5 TLIF Onset Date 03/08/19 Precautions Lumbar Precautions Log Roll,No Twisting,Limit Bending,Lifting Restriction of 10 lbs,Gait Belt above Incisional Area Weight Bearing Status Weight Bearing Status Full Weight Bearing M3 PT-IP Subjective Start: 03/09/19 11:36 Freq: NEEDED Status: Discharge Protocol: Document 03/10/19 09:40 AB (Rec: 03/10/19 12:49 AB [id number]) Subjective Physical Therapy Visit Type Type Treatment Note Visit Start Time 09:40 Visit Stop Time 10:07 Total Visit Minutes 27 Number of CUSTOMER RESPONSE REPRESENTATIVE Visits 0 Physical Therapy Visit Comments Patient Comments pt agreeable to do PT Therapy Pain Assessment Pain When Pain Assessed At Rest Pain Present Pain Present Pain Reported Location back Intensity 4 Scale Used increases to 7/10 with mobility Pain Management Techniques Re-positioning,Timing of Activity with Medications M4 PT-IP Mobility and Gait Start: 03/09/19 11:36 Freq: NEEDED Status: Discharge Protocol: Document 03/10/19 09:40 AB (Rec: 03/10/19 12:49 AB [id number]) PT-Bed Mobility Assessment Supine to Sit Supine to Sit Standby Assistance Sit to Supine Sit to Supine Standby Assistance Scooting Scooting to Edge of Bed Standby Assistance Scooting Up and Down in Bed Standby Assistance PT-Transfer Assessment Sit to and From Stand Sit to and from Stand Standby Assistance Equipment Transfer Assistive Device Gait Belt,Front Wheeled Walker Orthotic/Prosthetic Devices or Brace: No Transfers Transfer Destination Bed,Chair Transfer Technique Stand Step Pivot Transfer Ability Level of Assist Standby Assistance Comments Mobility Comments pt found sitting on chair. BP : 96/58. instructed pt to stand and completed SBA. BP checked in standin/56. caregiver training conducted. pt's daughter in room for training. educated daughter on use of safety belt and how to assist pt. daughter was able to put safety belt on and assist pt appropriately. pt completed bed mobility supine< >sit SBA and cues for safety and to slow down. c/o nausea after bed mobility. BP: 98/58 . pt agreed to continue with PT. ambulated towards the stairs using FWW with daughter and completed up/down platform steps CGA with FWW and daughter assisting. Gait Assessment Gait Gait Assistance Required: Standby Assistance,Contact Guard Assist Distance (Feet) 30 Able to Maintain Weight Bearing Status Yes During Gait Assistive Devices Assistive Device Gait Belt,Front Wheeled Walker Orthotic/Prosthetic Devices or Brace: No Factors Limiting Gait Function Factors Limiting Gait Function Decreased Activity Tolerance, Limited Range of Motion,Pain, Poor Balance Stair Climbing Assessment Evaluation Level of Assist On Stairs Contact Guard Assistance Devices Stair Climbing Assistive Devices Front Wheel Walker Technique/Endurance Stair Climbing Direction Ascend and Descend Stair Climbing Technique Step to Step Number of Steps Climbed 1 Stair Climbing Set # Repetitions (reps) 1 Comments Stair Climbing Comments pls refer to mobility section for details M5 PT-IP Objective Assessments Start: 03/09/19 11:36 Freq: NEEDED Status: Discharge Protocol: Document 03/09/19 09:30 MT (Rec: 03/09/19 12:11 MT [id number]) Orientation Orientation/Cognition Level of Alertness Alert Orientation Name,Date,Place,Situation Language Function Ability No Deficits Noted Safety Awareness Understands Safety Issues Memory Description No Deficits Noted Gross Range of Motion Lower Extremity ROM Assessment Within Functional Limits Impairments pain present Strength Lower Extremity Strength Assessment Bilaterally Impaired Comments Strength Comments R: 3+/5; L: 4/5 Sensation Assessment Sensation Gross Sensation WNL M6 PT-IP Treatment Start: 03/09/19 11:36 Freq: NEEDED Status: Discharge Protocol: Document 03/10/19 09:40 AB (Rec: 03/10/19 12:49 AB [id number]) Physical Therapy Treatment Education Education Provided Precautions,Safety M7 PT-IP Assessment and Plan Start: 03/09/19 11:36 Freq: NEEDED Status: Discharge Protocol: Document 03/10/19 09:40 AB (Rec: 03/10/19 12:49 AB [id number]) PT Summary Assessment and Plan Potential Rehabilitation Potential Good Summary Impairments Pain,ROM,Strength,Balance,Bed Mobility,Transfers,Gait, Activity Tolerance Progress Towards Goals Progressing Toward Goals Assessment Summary caregiver training conducted and pt's daughter was able to assist pt safely. pt plans to go home today. pt may go home when medically stable. Goals Bed Mobility Goal Independent Transfer Goal Independent,Front Wheeled Walker Gait Goal Standby Assistance,Front Wheel Walker Gait Distance 150 ft Other Goals able to asced/descend one step without use of handrail with 2WW and SBA Days to Meet Goals 5 Frequency of Treatment Frequency Of Treatment Twice a Day Treatment Plan Physical Therapy Treatment Plan Bed Mobility Training,Transfer Training,Gait Training, Therapeutic Exercise,Balance Retraining,Post Op Education, Discharge Planning,Hot or Cold Pack,Manual Therapy Other Recommendations and Next Treatment caregiver training, gait Focus training, and stair training when appropriate for pt Recommendations To Nursing Amount of Assist Needed 1 Person Assist Discharge Recommendations PT Discharge Recommendations Home with Assistance,Home Health,Outpatient PT Equipment Needed for Home Before 2WW Discharge
[2019-03-10] MEDS: SODIUM CHLORIDE 0.9% FLUSH 10 ML IV (09:58)
[2019-03-10] MEDS: ONDANSETRON 4 MG/2 ML INJ IV (10:13)
--- NOTE | 2019-03-10 10:38 | PM.DS.1 ---
History of Present Illness History of Present Illness Date Patient Seen: 03/10/19 Time Patient Seen: 10:38 Chief complaint: [id number] Narrative: Hospital day 3, postop day 2 following L4-5 laminectomy, TLIF, cage, posterior screw fixation by Dr. Ladd. Patient did have some hypertensive episode yesterday and responded well with IV bolus. Patient states she is feeling better today. PT and OT have both cleared her for home. His she is getting Percocet for pain. Patient is requesting a disabled parking permit. She does have several family members to help her at home. Discharge Providers Provider Date of admission: 03/08/19 10:54 Discharge Date: 03/10/19 Primary care physician: Guy Dowell MD Consults: 03/08/19 18:02 Consult to Occupational Therapy Evaluate & Treat Comment: Physician Instructions: Evaluate and treat Consult to Physical Therapy Evaluate & Treat Comment: Physician Instructions: Evaluate and Treat 03/09/19 19:01 Consult to Physical Therapy Evaluate & Treat Comment: Please dispense front wheel walker Physician Instructions: Evaluate and Treat Discharge provider: Carlos Hobbs PA-C Summary Hospital Course Discharge Diagnosis: Status post L4-5 laminectomy, TLIF, cage, posterior screw fixation Hospital Course: Patient brought to hospital on 03/08/2019 for above noted surgery. She remained stable postoperatively. Did have some hypotensive episodes on postop day 1 requiring IV bolus with good response. Patient progressed with better on postop day 2 and ready for discharge home. Status at Discharge Cognitive/behavioral status at discharge: oriented Functional status at discharge: uses cane/walker Overall status at discharge: patient is progressing back to baseline Time Spent with Patient Time spent: Less than 30 minutes Exam Vital Signs (past 8 hours): - 03/10/19 05:50 03/10/19 09:00 Temperature 97.8 F 99.1 F Pulse Rate 77 81 Respiratory Rate 16 16 Blood Pressure 107/58 L 101/61 Pulse Oximetry 96 95 Oxygen Delivery Method Room Air Oxygen Flow Rate 0 Narrative Exam Narrative: Alert, oriented no acute distress resting in bed. Back. Dressing to lumbar area is dry with very small amount of dry drainage. Legs. No calf pain or swelling. Pulses symmetrical. Good sensation to touch to both lower legs. Good strength on foot dorsiflexion plantar flexion bilateral. Discharge Plan Discharge Plan Patient Disposition: Home Discharge comment: Discharge home today after cleared by physical therapy. Given prescription for Percocet and for Zofran 0 DT. Discharge orders & Medications Prescriptions: New oxycodone-acetaminophen [Percocet] 5-325 mg tablet 1 tab PO Q4-6H PRN (Reason: pain (scale score 7-10)) Qty: 40 RF: 0 ondansetron 4 mg Tablet,Disintegrating 4 mg sublingual Q6HR PRN (Reason: Nausea) Qty: 6 RF: 0 Continued metformin 500 mg Tablet 1,000 mg PO QAM RF: 0 Lantus U-100 Insulin 100 unit/mL Solution 80 unit SUBCUT BEDTIME RF: 0 Lantus U-100 Insulin 100 unit/mL Solution 30 unit SUBCUT QAM RF: 0 albuterol sulfate [ProAir HFA] 90 mcg/actuation Hfa Aerosol Inhaler 2 puff INHALATION Q4-6H PRN (Reason: Shortness of breath, allergies) RF: 0 Humalog U-100 Insulin 100 unit/mL Cartridge 2 - 12 unit SUBCUT TID PRN (Reason: Sliding scale coverage) RF: 0 Follow up/Referrals: Rolf Ladd MD [Physician] - Guy Dowell MD [Primary Care Provider] - Discharge Health Status Multidrug resistant organism: No MDRO Diet/Activity/Treatments Diet: Diet as Tolerated and Carb-consistent/Diabetic Activity: no excessive bending, lifting, twisting. No lifting or carrying more than 5-10 lb. Ambulate as tolerated. Cold/Heat Therapy: continue cold/heat therapy as needed Skin/Wound/Dressing Care Report to your healthcare provider any signs of infection, such as:: chills, fever, increased pain, unusual drainage and unusual redness Dressing: keep dressing dry. if saturated, please contact the office Visit Report/Discharge Packet Instructions: Influenza Vaccine, DI for Transforaminal Lumbar Interbody Fusion Stand Alone Forms: Surgery Discharge Visit Report Forms: Patient Portal/API, Stroke Signs & Symptoms Discharge Data Primary Care Provider: Guy Dowell Quality VTE Deep Vein Thrombosis/Pulmonary Embolism Present on Admission: No
--- NOTE | 2019-03-10 12:43 | PC.NURSE ---
Day shift: Pt left unit at approx 1255 to private car driven by Pt's daughter. Taken to car in by AVA Meyer. Dressing is CDI. Papeerwork signed and all questions answered. Pt has scrips and all personal belongings.
== END 2019-03-10 12:44 | disposition home or self-care (01) | DRG 304 ==
PROVIDERS: Admitting Provider Orthopaedic Surgery Orthopaedic Surgery of the Spine; PCP Family Medicine; Visit Provider Orthopaedic Surgery Orthopaedic Surgery of the Spine
PROC: 0SG00AJ Fusion of Lumbar Vertebral Joint with Interbody Fusion Device, Posterior Approach, Anterior Column, Open Approach (ICD-10-PCS; principal; 2019-03-08 13:15)
DX: M48.062 Spinal stenosis, lumbar region with neurogenic claudication (principal); M21.371 Foot drop, right foot; M51.16 Intervertebral disc disorders with radiculopathy, lumbar region; J45.909 Unspecified asthma, uncomplicated; M41.26 Other idiopathic scoliosis, lumbar region; I95.9 Hypotension, unspecified; Z87.891 Personal history of nicotine dependence
CPT/HCPCS: 72100; 76000; 82962; 90471; 90656; 94762; 97162; 97165; 97530; 97535; C1776; C9290; J0131; J0330; J0690; J1170; J2060; J2250; J2405; J3010; J3410; Q2038

== ENCOUNTER → 2022-04-22 10:12 | Outpatient (CLI) | payer OTHER, SELFPAY ==
[2019-03-08 18:08] VITALS: BMI 24.2
--- NOTE | 2022-04-22 | DI.RAD.S_ITS ---
PROCEDURE: XR LUMBAR SPINE 2-3V INDICATIONS: Low back pain, unspecified TECHNIQUE: 3 views of the lumbar spine were acquired. COMPARISON: [facility], CR, XR LUMBAR SPINE 2 OR 3 VIEWS, 03/12/2020, 9:13. [facility], CR, XR LUMBAR SPINE 2-3V, 03/08/2019, 15:15. FINDINGS: Postsurgical changes of L4-L5 posterior fixation by means of bilateral rods and pedicle screws along with interbody device. Unchanged and normal appearance of the hardware. Normal vertebral body height and alignment. Disc height loss from L2-L3 through L5-S1 with associated degenerative endplate change and facet hypertrophy. IMPRESSION: Stable and normal position of L4-L5 fixation hardware. Similar degenerative changes when compared with previous exam. Dictated by: Gio Leggett M.D. on 04/22/2022 at 11:55 Approved by: Gio Leggett M.D. on 04/22/2022 at 11:57
== END ==
PROVIDERS: PCP Family Medicine; Referring Provider Internal Medicine Cardiovascular Disease; Visit Provider Internal Medicine Cardiovascular Disease
DX: M47.816 Spondylosis without myelopathy or radiculopathy, lumbar region (principal); M54.50 Low back pain, unspecified
CPT/HCPCS: 72100